=== PATIENT | male | born 1950 | race Caucasian/White ===

== ENCOUNTER 2017-10-30 07:25 | Day surgery (SDC) | payer MEDICARE, OTHER ==
[2017-10-30] MEDS ORDERED: Sodium Chloride 0.9% 10 ML Syringe FLUSH PRN (07:30)
[2017-10-30] MEDS ORDERED: Lactated Ringers 1,000 ML IV SCH (07:30)
[2017-10-30] MEDS ORDERED: Propofol 200 MG/20 ML SDV IV ONE (08:45)
[2017-10-30] MEDS ORDERED: Midazolam 1 MG/ML 2 ML SDV IV ONE (08:45)
--- NOTE | 2017-10-30 09:26 | PCM.OPNOTE ---
- General Post-Op/Procedure Note Date of Surgery/Procedure: 10/30/17 Operative Procedure(s): c scope with bx Findings: rectal polyp sigmoid diverticulosis Pre Op Diagnosis: screening Post-Op Diagnosis: rectal polyp. sigmoid diverticulosis Anesthesia Technique: MAC Primary Surgeon: Ming Nielsen Anesthesia Provider: Bernard Richter Pathology: rectal polyp Complications: None Condition: Good Free Text/Narrative:: see dictation
--- NOTE | 2017-10-30 09:52 | OR ---
DATE OF OPERATION: 10/30/2017 SURGEON: Ming Nielsen MD PROCEDURE PERFORMED: Colonoscopy with cold forceps biopsy. PREOPERATIVE DIAGNOSIS: Need for screening C scope. POSTOPERATIVE DIAGNOSIS: Rectal polyp. INDICATIONS FOR PROCEDURE: This is a 67-year-old white male who presents for his 1st screening colonoscopy. He is asymptomatic. DESCRIPTION OF PROCEDURE: After an excellent IV sedation was administered, digital rectal exam was performed. No marked abnormality was noted. Flexible colonoscope was inserted and advanced without difficulty to the cecum. The prep was excellent. The following findings were noted. Ascending colon, unremarkable. Transverse colon, unremarkable. Descending colon, unremarkable. Sigmoid, scattered diverticula. Rectum, a small polypoid lesion, biopsied with cold biopsy forceps and sent for permanent. Colon was deflated. Scope was removed. The patient tolerated the procedure well, and was taken to recovery room in good condition. Results by letter and followup scope on the basis of his pathologic report. /[id number] OLIVIER/MICHELLE
[2017-10-30 10:03] VITALS: BP 166/100
== END 2017-10-30 10:25 | disposition home or self-care (01) ==
LOC: FB.SDS 07:25
PROVIDERS: ATTEND Surgery
DX: Z12.11 Encounter for screening for malignant neoplasm of colon (principal); D12.8 Benign neoplasm of rectum; K57.30 Diverticulosis of large intestine without perforation or abscess without bleeding; I10 Essential (primary) hypertension; J44.9 Chronic obstructive pulmonary disease, unspecified; F17.210 Nicotine dependence, cigarettes, uncomplicated; E78.5 Hyperlipidemia, unspecified; Z79.82 Long term (current) use of aspirin; Z79.899 Other long term (current) drug therapy
CPT/HCPCS: 00812; 45380; 88305; J2250; J2704; J7120